=== PATIENT | male | born 1965 | race Caucasian/White ===

== ENCOUNTER → 2018-01-23 | Outpatient (CLI) | payer OTHER ==
[~2018-01-23] MED LIST: ASPI-424 PO; MULT-18 PO; SIMV20TA PO
== END | disposition home or self-care (01) ==
LOC: SURG 08:37
PROVIDERS: ATTEND Anesthesiology
DX: M53.3 Sacrococcygeal disorders, not elsewhere classified (principal); M25.521 Pain in right elbow; M79.2 Neuralgia and neuritis, unspecified
CPT/HCPCS: 99204

== ENCOUNTER → 2018-04-10 | Outpatient (CLI) | payer OTHER | END | disposition home or self-care (01) | LOC: SURG 08:53 | PROVIDERS: ATTEND Anesthesiology | DX: M54.5 Low back pain (principal); M53.3 Sacrococcygeal disorders, not elsewhere classified | CPT/HCPCS: 99214 ==